=== PATIENT | male | born 1940 | race Caucasian/White ===

== ENCOUNTER 2020-10-12 13:58 | Outpatient (CLI) | payer OTHER, SELFPAY ==
--- NOTE | ~2020-10-12 | CT_ITS ---
EXAMINATION: CT soft tissue neck w con DATE: 10/12/2020 14:53 INDICATION: Left neck mass. TECHNIQUE: Computed tomography (CT) of the neck was performed with 75 mL Omnipaque-350 intravenous co ntrast. Automated exposure control and iterative reconstruction technique were employed. The dose-terrence gth product was 417.98 mGy-cm. COMPARISON: None FINDINGS: There is mild scarring at the lung apices. A skin marker overlies the left submandibular gl and, which is normal. There is plaque in proximal right internal carotid artery with 0% stenosis rela tive to normal distal artery lumen diameter. There is moderate cervical spondylosis. There are lucenc ies around the roots of tooth 31. IMPRESSION: 1. No abnormal neck mass or lymphadenopathy. 2. Dental disease. Reviewed, dictated and finalized at location B.
[2020-10-12 14:46] LABS: Estimated Glomerular Filt Rate > 60
== END 2020-10-12 13:59 | disposition home or self-care (01) ==
PROVIDERS: PCP Internal Medicine; Visit Provider Otolaryngology
DX: R22.1 Localized swelling, mass and lump, neck (principal); K08.9 Disorder of teeth and supporting structures, unspecified
CPT/HCPCS: 70491; Q9967